=== PATIENT | male | born 1930 | race Caucasian/White ===

== ENCOUNTER 2018-01-11 09:33 | Emergency (ER) | payer MEDICARE, BC ==
[2018-01-11 10:09] LABS: BILIRUBIN,URINE NEGATIVE (NEGATIVE); GLUCOSE, URINE (UA) NEGATIVE (NEGATIVE); KETONES,URINE (UA) NEGATIVE (NEGATIVE); LEUKOCYTE ESTERASE, URINE MODERATE (NEGATIVE); NITRITE,URINE NEGATIVE (NEGATIVE); OCCULT BLOOD,URINE MODERATE (NEGATIVE); PH,URINE 6.5 PH (5.0-7.5); PROTEIN,URINE 30 mg/dL (NEGATIVE); UROBILINOGEN,URINE 0.2 (NORMAL) E.U./dL (NORMAL)
[2018-01-11 10:12] LABS: CLARITY,URINE CLOUDY (CLEAR)
[2018-01-11 10:19] LABS: AMORPHOUS SEDIMENT,UR Rare /LPF; BACTERIA,URINE Many /HPF (None Seen); SQUAMOUS EPITHELIAL CELL,UR RARE Squamous (<= Few)
[2018-01-11] MEDS ORDERED: levoFLOXacin 250 MG TABLET PO STA (10:34)
--- NOTE | 2018-01-11 10:36 | ED Physician Documentation ---
PD HPI MALE - Stated complaint Stated Complaint: MALE - Chief complaint Chief Complaint: UTI - History obtained from History obtained from: Patient, Family - History of Present Illness Timing - onset: Yesterday Timing - duration: Days (1) Timing - details: Abrupt onset, Still present Associated symptoms: Dysuria, Urinary frequency, Back pain. No: Testiclar pain , Scrotal swelling, Abdominal pain PD HPI MALE CONTRIB FACTORS: Other (hx of prostate cancer 16 years ago) Similar symptoms before: Has not had sx before Recently seen: Not recently seen Review of Systems Constitutional: denies: Fever, Chills, Myalgias, Fatigue Eyes: denies: Decreased vision Ears: denies: Ear pain Nose: denies: Congestion Throat: denies: Sore throat Cardiac: denies: Chest pain / pressure, Palpitations Respiratory: denies: Dyspnea, Cough GI: denies: Abdominal Pain, Nausea, Vomiting : reports: Dysuria, Frequency Skin: denies: Rash Musculoskeletal: denies: Neck pain, Back pain Neurologic: denies: Generalized weakness, Focal weakness, Numbness PD PAST MEDICAL HISTORY - Past Medical History Past Medical History: Yes Cardiovascular: Hypertension : Kidney stones, Other Other Past Medical History: prostate cancer treated with seed implants. - Past Surgical History Past Surgical History: Yes General: Cholecystectomy HEENT: Tonsil/Adenoidectomy - Present Medications Home Medications: Ambulatory Orders Medication Instructions Recorded Confirmed Levofloxacin [Levaquin] 500 mg PO DAILY #7 tablet 01/11/18 Lisinopril 2.5 mg DAILY 01/11/18 01/11/18 - Allergies Allergies/Adverse Reactions: Allergies Allergy/AdvReac Type Severity Reaction Status Date / Time diphenhydramine Allergy Unknown Verified 01/11/18 09:46 [From Benadryl] - Social History Does the pt smoke?: No Smoking Status: Never smoker Does the pt drink ETOH?: No Does the pt have substance abuse?: No PD ED PE NORMAL - Vitals Vital signs reviewed: Yes (hypertensive ) - General General: Alert and oriented X 3, No acute distress, Well developed/nourished - HEENT HEENT: Atraumatic, PERRL, EOMI - Neck Neck: Supple, no meningeal sign - Cardiac Cardiac: RRR, No murmur - Respiratory Respiratory: No respiratory distress, Clear bilaterally - Abdomen Abdomen: Soft, Non tender - Back Back: No CVA TTP, No spinal TTP - Derm Derm: Normal color, Warm and dry, No rash - Extremities Extremities: No deformity, No edema - Neuro Neuro: Alert and oriented X 3, No motor deficit, No sensory deficit, Normal speech Eye Opening: Spontaneous Motor: Obeys Commands Verbal: Oriented GCS Score: 15 - Psych Psych: Normal mood, Normal affect Results - Vitals Vitals: Vital Signs - 24 hr 01/11/18 01/11/18 09:36 11:12 Temperature 36.2 C L Heart Rate 90 95 Respiratory 18 14 Rate Blood Pressure 148/96 H 134/92 H O2 Saturation 94 96 Oxygen O2 Source Room air - Labs Labs: Laboratory Tests 01/11/18 09:36 Urine Color YELLOW Urine Clarity CLOUDY Urine pH 6.5 Ur Specific [place] 1.020 Urine Protein 30 H Urine Glucose (UA) NEGATIVE Urine Ketones NEGATIVE Urine Occult Blood MODERATE H Urine Nitrite NEGATIVE Urine Bilirubin NEGATIVE Urine Urobilinogen 0.2 (NORMAL) Ur Leukocyte Esterase MODERATE H Urine RBC 6-10 H Urine WBC >25 H Ur Squamous Epith Cells RARE Squamous Amorphous Sediment Rare Urine Bacteria Many H Ur Microscopic Review INDICATED Urine Culture Comments INDICATED PD MEDICAL DECISION MAKING - ED course Complexity details: reviewed results, re-evaluated patient, considered differential, d/w patient, d/w family ED course: 87-year-old male with acute urinary tract infection does not appear ill today this morning. He is administered Levaquin 500 mg orally here in the emergency department and a prescription for 1 week's antibiotic. He does not live in the area and will follow-up in the emergency department should he have deterioration within the next week. - Sepsis Event Vital Signs: Vital Signs - 24 hr 01/11/18 01/11/18 09:36 11:12 Temperature 36.2 C L Heart Rate 90 95 Respiratory 18 14 Rate Blood Pressure 148/96 H 134/92 H O2 Saturation 94 96 Oxygen O2 Source Room air Departure - Departure Disposition: 01 Home, Self Care Clinical Impression: Urinary tract infection Qualifiers: Urinary tract infection type: acute cystitis Hematuria presence: with hematuria Qualified Code(s): N30.01 - Acute cystitis with hematuria Instructions: ED UTI Cystitis Male Follow-Up: Your, doctor [Other] Prescriptions: Levofloxacin [Levaquin] 500 mg PO DAILY #7 tablet Discharge Date/Time: 01/11/18 11:14
[2018-01-11 11:14] VITALS: BP 134/92
== END 2018-01-11 11:14 | disposition home or self-care (01) ==
LOC: ED 09:33
DX: N30.01 Acute cystitis with hematuria (principal); I10 Essential (primary) hypertension
CPT/HCPCS: 81001; 87086; 99283; A9270; 81003

== ENCOUNTER 2018-01-12 19:49 | Emergency (ER) | payer MEDICARE, BC ==
[2018-01-12 20:17] LABS: BASOPHILS % (AUTO) 0.4 %; EOSINOPHILS # (AUTO) 0.1 10^3/uL (0.0-0.7); EOSINOPHILS % (AUTO) 0.9 %; HGB - HEMOGLOBIN 16.3 g/dL (14.0-18.0); LYMPHOCYTES # (AUTO) 1.8 10^3/uL (1.5-3.5); LYMPHOCYTES % (AUTO) 17.8 %; MEAN CORPUSCULAR HEMOGLOBIN 32.4 pg (27.0-31.0); MEAN CORPUSCULAR HGB CONC 35.1 g/dL (32.0-36.0); MEAN CORPUSCULAR VOLUME 92.4 fL (80.0-94.0); MEAN PLATELET VOLUME 7.2 fL (7.4-11.4); MONOCYTES # (AUTO) 1.4 10^3/uL (0.0-1.0); MONOCYTES % (AUTO) 13.9 %; NEUTROPHILS # (AUTO) 6.9 10^3/uL (1.5-6.6); PLT - PLATELET COUNT 264 10^3/uL (130-450); RED BLOOD COUNT 5.04 10^6/uL (4.70-6.10); RED CELL DISTRIBUTION WIDTH 13.2 % (12.0-15.0); WHITE BLOOD COUNT 10.4 x10^3/uL (4.8-10.8)
[2018-01-12] MEDS ORDERED: SODIUM CHLORIDE 0.9% 1,000 ML IV ONE (20:18)
[2018-01-12 20:30] LABS: ALBUMIN 4.2 g/dL (3.2-5.5); ALBUMIN/GLOBULIN RATIO 1.2 (1.0-2.2); BILIRUBIN,TOTAL 1.3 mg/dL (0.2-1.0); CALCIUM 8.8 mg/dL (8.5-10.3); TOTAL PROTEIN 7.8 g/dL (6.7-8.2)
[2018-01-12] MEDS ORDERED: IOPAMIDOL-300 100 ML VIAL ONE (20:31)
[2018-01-12 20:47] LABS: BILIRUBIN,URINE NEGATIVE (NEGATIVE); GLUCOSE, URINE (UA) NEGATIVE (NEGATIVE); KETONES,URINE (UA) 15 mg/dL (NEGATIVE); LEUKOCYTE ESTERASE, URINE LARGE (NEGATIVE); NITRITE,URINE POSITIVE (NEGATIVE); OCCULT BLOOD,URINE MODERATE (NEGATIVE); PROTEIN,URINE 100 mg/dL (NEGATIVE); UROBILINOGEN,URINE 0.2 (NORMAL) E.U./dL (NORMAL)
[2018-01-12 21:07] LABS: CLARITY,URINE CLOUDY (CLEAR)
[2018-01-12] MEDS ORDERED: IOPAMIDOL-300 100 ML VIAL IVP ONE (21:07)
[2018-01-12 21:08] LABS: BACTERIA,URINE None Seen /HPF (None Seen); RBC,URINE 0-5 /HPF (0-5); SQUAMOUS EPITHELIAL CELL,UR NONE SEEN (<= Few)
--- NOTE | 2018-01-12 21:41 | CT Report ---
Reason: diffuse abdominal pain Procedure Date: 01/12/2018 Accession Number: [id number] / [id number] Procedure: CT - Abdomen/Pelvis W/ CPT Code: FULL RESULT: EXAM: CT ABDOMEN AND PELVIS EXAM DATE: 01/12/2018 08:51 PM. CLINICAL HISTORY: Diffuse abdominal pain. COMPARISONS: None. TECHNIQUE: Routine helical CT imaging was performed through the abdomen and pelvis. IV contrast: 100 ML ISOVUE 300. Enteric contrast: No. Reconstructions: Coronal and sagittal. In accordance with CT protocol optimization, one or more of the following dose reduction techniques were utilized for this exam: automated exposure control, adjustment of mA and/or KV based on patient size, or use of iterative reconstructive technique. FINDINGS: ABDOMEN: Lung Bases: Incompletely included lower lungs demonstrate a 9 mm nodule in the right lower lobe (3/5).. Heart size is within normal limits. No basilar effusions. Liver: Numerous hepatic cysts are present predominantly in the left hepatic lobe measuring up to 4.8 cm. Spleen: Unremarkable aside from scattered calcified granulomas. Pancreas: Unremarkable. Gallbladder/Bile Ducts: Status post cholecystectomy. Biliary tree is normal caliber. Adrenal Glands: Unremarkable. Kidneys: Bilateral mild hydroureteronephrosis, likely related to marked bladder distention and bladder outlet obstruction. Nonobstructing to me a calculus in the right upper pole. 9.5 cm right inferior renal cyst. Peritoneum/Mesentery/Bowel: No free fluid, free air, or collection. No intestinal obstruction. There is a duodenal ulcer medially from the second duodenum surrounding inflammation. Colonic diverticulosis is present. The appendix is within normal limits. Lymph nodes: No mesenteric, periportal, or retroperitoneal lymphadenopathy. Vasculature: Abdominal aorta is nonaneurysmal. Portal vein is patent. Hepatic veins are patent. PELVIS: Bladder is markedly distended with trabeculations. Numerous prostatic radiation seeds. Known prostate cancer is not well visualized by CT. No pelvic lymphadenopathy. Bones: No suspicious osseous lesions. IMPRESSION: Duodenal ulcer with mild to moderate surrounding inflammation. No free air or abscess. 9 mm nodule in the right lower lobe. Follow-up chest CT is recommended in 3 months. Markedly distended urinary bladder with trabeculations and mild bilateral hydroureteronephrosis, most consistent with outlet obstruction. RADIA
--- NOTE | 2018-01-12 21:46 | ED Physician Documentation ---
PD HPI ABD PAIN - Stated complaint Stated Complaint: ABD/BACK PX - Chief complaint Chief Complaint: Abd Pain - History obtained from History obtained from: Patient - History of Present Illness Timing - onset: How many days ago (3) Timing - details: Gradual onset, Still present Quality: Cramping, Aching Location: Suprapubic Radiation: Lower back, Left flank, Right flank Associated symptoms: No: Near syncope / syncope Similar symptoms before: Work up / diagnostics, Treatment Recently seen: Emergency Dept - Additional information Additional information: patient is an 87 year old male with a history of prostate ca who is presenting to the emergency department for abdominal pain radiating to his back. patient was seen in the emergency department yesterday and diagnosed with a urinary tract infection and started on levaquin. patient states that his abdominal pain was getting worse so he came to the emergency department for evaluation. Review of Systems Constitutional: reports: Chills, Sweats Eyes: reports: Reviewed and negative Ears: reports: Reviewed and negative Cardiac: denies: Chest pain / pressure GI: reports: Abdominal Pain, Nausea. denies: Vomiting, Constipation, Diarrhea : reports: Dysuria, Unable to Void (shreya voiding small amounts) Skin: denies: Rash, Lesions Neurologic: denies: Head injury, LOC Psychiatric: denies: Depressed Immunocompromised: denies: Immunocompromised PD PAST MEDICAL HISTORY - Past Medical History Cardiovascular: Hypertension : Kidney stones, Other - Past Surgical History Past Surgical History: Yes General: Cholecystectomy HEENT: Tonsil/Adenoidectomy - Present Medications Home Medications: Ambulatory Orders Medication Instructions Recorded Confirmed Levofloxacin [Levaquin] 500 mg PO DAILY #7 tablet 01/11/18 Lisinopril 2.5 mg DAILY 01/11/18 01/11/18 - Allergies Allergies/Adverse Reactions: Allergies Allergy/AdvReac Type Severity Reaction Status Date / Time diphenhydramine Allergy Unknown Verified 01/12/18 20:23 [From Benadryl] - Social History Does the pt smoke?: No Smoking Status: Never smoker Does the pt drink ETOH?: No Does the pt have substance abuse?: No PD ED PE NORMAL - Vitals Vital signs reviewed: Yes - General General: Alert and oriented X 3 - HEENT HEENT: Other (mucus membranes slightly dry) - Cardiac Cardiac: RRR - Respiratory Respiratory: No respiratory distress - Derm Derm: Normal color, Warm and dry - Extremities Extremities: No deformity - Neuro Neuro: Alert and oriented X 3 Eye Opening: Spontaneous PD ED PE EXPANDED - Abdomen Abdomen: Distended, Tender to palpation Results - Vitals Vitals: Vital Signs - 24 hr 01/12/18 01/12/18 19:56 21:34 Temperature 37.0 C 37.2 C Heart Rate 96 76 Respiratory 18 24 Rate Blood Pressure 138/86 H 130/75 O2 Saturation 96 93 Oxygen O2 Source Room air - Labs Labs: Laboratory Tests 01/12/18 01/12/18 01/12/18 20:10 20:10 20:38 WBC 10.4 RBC 5.04 Hgb 16.3 Hct 46.6 MCV 92.4 MCH 32.4 H MCHC 35.1 RDW 13.2 Plt Count 264 MPV 7.2 L Neut # (Auto) 6.9 H Lymph # (Auto) 1.8 [place] # (Auto) 1.4 H Eos # (Auto) 0.1 Baso # (Auto) 0.0 Absolute Nucleated RBC 0.02 Nucleated RBC % 0.2 Sodium 129 L Potassium 3.8 Chloride 93 L Carbon Dioxide 23 Anion Gap 13.0 BUN 19 Creatinine 1.0 Estimated GFR (MDRD) 71 L Glucose 125 H Calcium 8.8 Total Bilirubin 1.3 H AST 20 ALT 15 Alkaline Phosphatase 54 Total Protein 7.8 Albumin 4.2 Globulin 3.6 Albumin/Globulin Ratio 1.2 Lipase 24 Urine Color LT. YELLOW Urine Clarity CLOUDY Urine pH 6.0 Ur Specific [place] 1.015 Urine Protein 100 H Urine Glucose (UA) NEGATIVE Urine Ketones 15 H Urine Occult Blood MODERATE H Urine Nitrite POSITIVE H Urine Bilirubin NEGATIVE Urine Urobilinogen 0.2 (NORMAL) Ur Leukocyte Esterase LARGE H Urine RBC 0-5 Urine WBC >25 H Ur Squamous Epith Cells NONE SEEN Urine Bacteria None Seen Ur Microscopic Review INDICATED Urine Culture Comments INDICATED - Rads (name of study) ct abd pelvis Radiology: Final report received (enlarged bladder with mild hydronephrosis) PD MEDICAL DECISION MAKING - ED course Complexity details: reviewed old records, reviewed results, re-evaluated taye gilbert, considered differential, d/w patient ED course: Patient was seen and examined at bedside. patient had moderate abd pain. labs were drawn, urine was collected and patient was started on a fluid bolus. Imaging was ordered. When patient returned from imaging patient was found to have acute urinary retention. romero was placed with over a liter of urine removed. Patient has had a history of retention in the past and used to self cath. patient was treated with vicodin for pain as the catheter was difficult to place. patient required no further work up and was stable for discharge with outpatient follow up. - Sepsis Event Vital Signs: Vital Signs - 24 hr 01/12/18 01/12/18 19:56 21:34 Temperature 37.0 C 37.2 C Heart Rate 96 76 Respiratory 18 24 Rate Blood Pressure 138/86 H 130/75 O2 Saturation 96 93 Oxygen O2 Source Room air Departure - Departure Disposition: 01 Home, Self Care Clinical Impression: Urinary tract infection, Urinary retention with incomplete bladder emptying Condition: Good Instructions: ED Catheter Care Romero, ED UTI Cystitis Male Follow-Up: primary,care provider [Other] - Within 1 week Comments: Your symptoms today are being caused by urinary retention and urinary tract infection. You should finish your course of antibiotics. You should stay well hydrated. a romero cather is being placed and it will stay in until you follow up with your doctor when you get back home. You may return to the emergency department at any time for new, worsening or uncontrollable symptoms.
[2018-01-12] MEDS ORDERED: HYDROcod/ACETAM 5/325 MG TABLET PO STA (22:02)
[2018-01-12 22:17] VITALS: BP 128/69
== END 2018-01-12 23:12 | disposition home or self-care (01) ==
LOC: ED 19:49
DX: N39.0 Urinary tract infection, site not specified (principal); R33.9 Retention of urine, unspecified; I10 Essential (primary) hypertension; Z85.46 Personal history of malignant neoplasm of prostate
CPT/HCPCS: 36415; 51703; 74177; 80053; 81001; 83690; 85025; 87077; 87086; 87181; 96361; 96374; 99282; 99284; A9270; Q9967; 81003